=== PATIENT | female | born 1945 | race Two or more races ===

== ENCOUNTER 2016-10-24 13:40 | Inpatient (IN) | payer OTHER, MEDICAID ==
[~2016-10-24] VITALS: Ht 160 cm; Wt 94.1 kg
[~2016-10-24 13:40] MED LIST: ACET-1158 PO; ARIP1TAB7 PO; CHOL20007 PO; DIPH50TA9 PO; GABA-497 PO; HAL5T PO; LISI-646 PO; METF-372 PO; NIFE30TA87 PO; SERT-160 PO; SIMV-8 PO; WARF4TAB33 PO
[2016-10-24 14:55] LABS: Basophils # (auto) 0 uL; Basophils % (auto) 0.1 % (0.0-2.0); CONDITION Y; Eosinophils # (auto) 0 uL; Eosinophils % (auto) 0.1 % (0.0-7.0); Hematocrit 41.2 % (36.0-46.0); Hemoglobin 14.1 g/dL (12.2-16.2); Lymphocytes % (auto) 11.1 % (10.0-50.0); Mean Corpuscular Hemoglobin 28.9 pg (28.0-32.0); Mean Corpuscular Hgb Conc. 34.1 g/dL (32.0-36.0); Mean Corpuscular Volume 84.8 fL (80.0-100.0); Monocytes # (auto) 0.5 uL; Monocytes % (auto) 5.4 % (0.0-12.0); Neutrophils # (auto) 7.8 uL; Neutrophils % (auto) 83.3 % (37.0-80.0); Platelet Count (auto) 342 10^3/uL (140-450); Red Cell Distribution Width 13.9 % (11.6-16.0); White Blood Cell 9.3 10^3/uL (4.4-10.8)
[2016-10-24] MEDS ORDERED: TEMA15CA91 PO (15:07)
[2016-10-24] MEDS ORDERED: RISP2TAB62 PO (15:07)
[2016-10-24 15:11] LABS: Albumin 3.1 g/dL (3.4-5.0); Anion Gap 13 (5-15); Aspartate Aminotransferase 14 U/L (15-37); BUN/Creatinine Ratio 18.1; Blood Urea Nitrogen 23 mg/dL (7-18); Calcium 9.8 mg/dL (8.5-10.1); Carbon Dioxide 20 mmol/L (21-32); Chloride 99 mmol/L (98-107); GFR African American 54 mL/min; GFR Non-African American 44 mL/min; Glucose 380 mg/dL (74-106); Magnesium 3.9 mg/dL (1.6-2.6); Potassium 4.2 mmol/L (3.5-5.1); Sodium 132 mmol/L (136-145)
[2016-10-24 15:15] LABS: Alkaline Phosphatase 157 U/L (45-117); Bilirubin, Total 0.2 mg/dL (0.2-1.0); Total Protein 7.1 g/dL (6.4-8.2)
[2016-10-24] MEDS ORDERED: ONDANSETRON HCL 4 MG/2 ML VIAL IV ONE (16:30)
[2016-10-24] MEDS ORDERED: ASPirin 81 mg TAB PO ONE (16:30)
[2016-10-24] MEDS ORDERED: MORPHINE SULF INJ 2 MG/ML SYRINGE 1ML IV ONE (16:30)
[2016-10-24 17:01] LABS: INR 0.93 (0.9-1.15); Partial Thromboplastin Time 23.8 sec (22.64-33.71); Prothrombin Time 10.1 sec (9.37-12.3)
[2016-10-24 17:03] LABS: Urine Bilirubin Negative (Negative); Urine Blood TRACE /uL (Negative); Urine Color Yellow (Yellow); Urine Mucus FEW (None Seen); Urine Nitrite Negative (Negative); Urine RBC 1 /hpf (0 - 4); Urine Squamous Epithelial Cell FEW /hpf (<5); Urine Urobilinogen Normal (Negative)
[2016-10-24 17:17] LABS: B-Type Natriuretic Peptide 55.64 pg/mL (0-100)
[2016-10-24 17:25] LABS: Urine Glucose 4+ mg/dL (Normal); Urine Ketone 1+ (Negative)
[2016-10-24 17:50] LABS: Temperature: 24.1 C (20.0-25.0)
[2016-10-24] MEDS ORDERED: cefTRIAXone 1GM/50ML D5W 50 ML IV ONE (18:00)
[2016-10-24] MEDS ORDERED: NITROGLYCERIN 0.4 MG SL TAB SL PRN (18:00)
[2016-10-24] MEDS ORDERED: PATIENTS OWN MEDICATION (Simvastatin 1 TAB) PO SCH ×2 (18:00)
[2016-10-24] MEDS ORDERED: MORPHINE SULF INJ 2 MG/ML SYRINGE 1ML IV PRN (18:00)
[2016-10-24] MEDS ORDERED: ACETAMINOPHEN 500 MG TAB PO PRN (18:00)
[2016-10-24] MEDS ORDERED: HALOPERIDOL 5 MG TAB PO SCH (18:00)
[2016-10-24] MEDS ORDERED: DEXTROSE (50%) 50ML SYRG IV PRN (18:00)
[2016-10-24] MEDS: SODIUM CHLORIDE 0.9% 1,000 ML IV SCH (18:26)
[2016-10-24] MEDS: risperiDONE 1 MG TAB PO SCH (18:37)
[2016-10-24] MEDS: HYDROcodone-ACET 5/325MG TAB PO PRN (18:37)
[2016-10-24] MEDS: InsuLIN REG 1unit/0.01ml Soln (100units/ml) SC SCH (21:09)
[2016-10-24] MEDS: ACCU-CHEK COMFORT CURVE STRIP VI SCH (21:10)
[2016-10-24] MEDS: MORPHINE SULF INJ 2 MG/ML SYRINGE 1ML IV PRN (21:36)
[2016-10-24] MEDS: PROMETHAZINE HCL 25 MG/ML 1ML IV PRN (21:37)
[2016-10-24] MEDS: METOPROLOL TARTRATE 25 MG TAB PO SCH (22:00)
[2016-10-24] MEDS: ATORVASTATIN 20 MG TAB PO SCH (22:00)
[2016-10-24] MEDS: GABAPENTIN 300 MG CAP PO SCH (22:00)
[2016-10-25 00:17] VITALS: BP 116/68
[2016-10-25] MEDS: InsuLIN REG 1unit/0.01ml Soln (100units/ml) SC SCH ×6 (04:22→19:50)
[2016-10-25] MEDS: ACCU-CHEK COMFORT CURVE STRIP VI SCH ×6 (04:22→19:50)
[2016-10-25] MEDS: MORPHINE SULF INJ 2 MG/ML SYRINGE 1ML IV PRN (04:23)
[2016-10-25] MEDS: SODIUM CHLORIDE 0.9% 1,000 ML IV SCH ×2 (04:56→20:27)
[2016-10-25 04:58] VITALS: BP 110/61
[2016-10-25] MEDS: GABAPENTIN 300 MG CAP PO SCH ×3 (05:21→22:00)
[2016-10-25 06:11] LABS: Basophils # (auto) 0 uL; Basophils % (auto) 0.1 % (0.0-2.0); CONDITION Y; Eosinophils # (auto) 0 uL; Hematocrit 40.1 % (36.0-46.0); Hemoglobin 13.6 g/dL (12.2-16.2); Lymphocytes # (auto) 1.1 uL; Lymphocytes % (auto) 10.5 % (10.0-50.0); Mean Corpuscular Volume 85.1 fL (80.0-100.0); Mean Platelet Volume 9.2 fL (7.4-10.4); Monocytes # (auto) 0.9 uL; Monocytes % (auto) 8.8 % (0.0-12.0); Neutrophils # (auto) 8.5 uL; Neutrophils % (auto) 80.6 % (37.0-80.0); Platelet Count (auto) 336 10^3/uL (140-450); Red Cell Distribution Width 13.9 % (11.6-16.0); White Blood Cell 10.5 10^3/uL (4.4-10.8)
[2016-10-25 06:42] LABS: Albumin 2.9 g/dL (3.4-5.0); Alkaline Phosphatase 126 U/L (45-117); Anion Gap 12 (5-15); Aspartate Aminotransferase 20 U/L (15-37); BUN/Creatinine Ratio 23.7; Bilirubin, Total 0.3 mg/dL (0.2-1.0); Blood Urea Nitrogen 37 mg/dL (7-18); Calcium 9.7 mg/dL (8.5-10.1); Carbon Dioxide 22 mmol/L (21-32); Chloride 99 mmol/L (98-107); Cholesterol 186 mg/dL (< 200); GFR African American 42 mL/min; GFR Non-African American 35 mL/min; Glucose 210 mg/dL (74-106); HDL Cholesterol 32 mg/dL (40-59); LDL Cholesterol 123 mg/dL (< 100); Potassium 3.8 mmol/L (3.5-5.1); Sodium 133 mmol/L (136-145); Total Protein 6.9 g/dL (6.4-8.2); Triglycerides 183 mg/dL (< 150)
[2016-10-25 08:48] VITALS: BP 105/57
[2016-10-25] MEDS: SERTRALINE HCL 50 MG TAB PO SCH ×2 (09:30→22:00)
[2016-10-25] MEDS: cefTRIAXone 1GM/50ML D5W 50 ML IV SCH (09:30)
[2016-10-25] MEDS: ENOXAPARIN SOD 40 MG/0.4 ML SYRINGE SC SCH (09:30)
[2016-10-25] MEDS: risperiDONE 1 MG TAB PO SCH (09:31)
[2016-10-25] MEDS: ASPirin 81 mg TAB PO SCH (09:31)
[2016-10-25] MEDS: NITROGLYCERIN 0.2MG/HR TOPICAL PATCH TD SCH (10:00)
[2016-10-25] MEDS: NIFEdipine ER 30 MG TAB PO SCH (10:00)
[2016-10-25] MEDS: LISINOPRIL 20 MG TAB PO SCH (10:00)
[2016-10-25] MEDS: METOPROLOL TARTRATE 25 MG TAB PO SCH ×2 (10:00→22:00)
[2016-10-25 13:00] VITALS: BP 97/58
[2016-10-25 16:14] VITALS: BP 112/68
[2016-10-25] MEDS: metFORMIN HYDROCHLORIDE 500 MG TAB PO SCH (17:44)
[2016-10-25 22:00] VITALS: BP 109/65
[2016-10-25] MEDS: ATORVASTATIN 20 MG TAB PO SCH (22:00)
[2016-10-25] MEDS: HALOPERIDOL 5 MG TAB PO SCH (22:00)
[2016-10-25] MEDS: TEMAZEPAM 15 MG CAP PO SCH (22:00)
[2016-10-26] VITALS (7 sets, daily range): BP systolic 77–111; BP diastolic 41–69
[2016-10-26] MEDS: ACCU-CHEK COMFORT CURVE STRIP VI SCH ×7 (00:03→23:17)
[2016-10-26] MEDS: InsuLIN REG 1unit/0.01ml Soln (100units/ml) SC SCH ×7 (04:00→23:18)
[2016-10-26] MEDS: GABAPENTIN 300 MG CAP PO SCH ×4 (06:00→21:21)
[2016-10-26] MEDS: metFORMIN HYDROCHLORIDE 500 MG TAB PO SCH ×2 (06:15→17:11)
[2016-10-26 06:20] LABS: Basophils # (auto) 0 uL; Basophils % (auto) 0.3 % (0.0-2.0); CONDITION Y; Eosinophils # (auto) 0 uL; Eosinophils % (auto) 0.1 % (0.0-7.0); Hematocrit 38.4 % (36.0-46.0); Hemoglobin 13.1 g/dL (12.2-16.2); Lymphocytes # (auto) 1.6 uL; Lymphocytes % (auto) 15.5 % (10.0-50.0); Mean Corpuscular Hemoglobin 29.3 pg (28.0-32.0); Mean Corpuscular Hgb Conc. 34.2 g/dL (32.0-36.0); Mean Corpuscular Volume 85.8 fL (80.0-100.0); Monocytes # (auto) 1.1 uL; Monocytes % (auto) 10.8 % (0.0-12.0); Neutrophils # (auto) 7.4 uL; Neutrophils % (auto) 73.3 % (37.0-80.0); Platelet Count (auto) 327 10^3/uL (140-450); Red Cell Distribution Width 14.3 % (11.6-16.0); White Blood Cell 10.1 10^3/uL (4.4-10.8)
[2016-10-26 06:56] LABS: BUN/Creatinine Ratio 29.5; Calcium 9.4 mg/dL (8.5-10.1); Magnesium 3.1 mg/dL (1.6-2.6); Phosphorus 3.5 mg/dL (2.5-4.90); Potassium 3.8 mmol/L (3.5-5.1)
[2016-10-26] MEDS ORDERED: ADENOSINE IV ONE (09:15)
[2016-10-26] MEDS ORDERED: GIVE UN DILUTED IV ONE (09:15)
[2016-10-26] MEDS ORDERED: ADENOSINE 75 MG in GIVE UN-DILUTED 0 ML IV ONE ×2 (09:30→10:15)
[2016-10-26] MEDS: risperiDONE 1 MG TAB PO SCH (09:43)
[2016-10-26] MEDS: cefTRIAXone 1GM/50ML D5W 50 ML IV SCH (09:43)
[2016-10-26] MEDS: NIFEdipine ER 30 MG TAB PO SCH (09:44)
[2016-10-26] MEDS: ASPirin 81 mg TAB PO SCH (09:44)
[2016-10-26] MEDS: METOPROLOL TARTRATE 25 MG TAB PO SCH ×2 (09:45→21:21)
[2016-10-26] MEDS: SERTRALINE HCL 50 MG TAB PO SCH ×2 (09:45→21:21)
[2016-10-26] MEDS: SODIUM CHLORIDE 0.9% 1,000 ML IV SCH ×2 (09:46→23:07)
[2016-10-26] MEDS: MORPHINE SULF INJ 2 MG/ML SYRINGE 1ML IV PRN (09:46)
[2016-10-26] MEDS: LISINOPRIL 20 MG TAB PO SCH (09:47)
[2016-10-26] MEDS: NITROGLYCERIN 0.2MG/HR TOPICAL PATCH TD SCH (09:47)
[2016-10-26] MEDS: ENOXAPARIN SOD 40 MG/0.4 ML SYRINGE SC SCH (09:47)
[2016-10-26] MEDS ORDERED: CEPH-37 PO (11:00)
[2016-10-26] MEDS: HYDROcodone-ACET 5/325MG TAB PO PRN (15:55)
[2016-10-26] MEDS: ATORVASTATIN 20 MG TAB PO SCH (21:21)
[2016-10-26] MEDS: HALOPERIDOL 5 MG TAB PO SCH (21:21)
[2016-10-26] MEDS: TEMAZEPAM 15 MG CAP PO SCH (23:17)
[2016-10-27] MEDS: ACCU-CHEK COMFORT CURVE STRIP VI SCH ×5 (04:37→20:00)
[2016-10-27] MEDS: InsuLIN REG 1unit/0.01ml Soln (100units/ml) SC SCH ×5 (04:37→20:00)
[2016-10-27 05:00] VITALS: BP 96/52
[2016-10-27] MEDS: GABAPENTIN 300 MG CAP PO SCH ×4 (06:00→21:18)
[2016-10-27] MEDS: metFORMIN HYDROCHLORIDE 500 MG TAB PO SCH ×3 (06:32→18:43)
[2016-10-27] MEDS: MORPHINE SULF INJ 2 MG/ML SYRINGE 1ML IV PRN (08:52)
[2016-10-27] MEDS: cefTRIAXone 1GM/50ML D5W 50 ML IV SCH (08:52)
[2016-10-27 09:00] VITALS: BP 118/70
[2016-10-27] MEDS ORDERED: KETOROLAC TROMETH 30 MG/ML 1ML VIAL IM ONE (09:00)
[2016-10-27] MEDS: NITROGLYCERIN 0.2MG/HR TOPICAL PATCH TD SCH (10:00)
[2016-10-27] MEDS: LISINOPRIL 20 MG TAB PO SCH (10:00)
[2016-10-27] MEDS: NIFEdipine ER 30 MG TAB PO SCH (10:00)
[2016-10-27] MEDS: METOPROLOL TARTRATE 25 MG TAB PO SCH ×2 (10:00→21:18)
[2016-10-27] MEDS: ENOXAPARIN SOD 40 MG/0.4 ML SYRINGE SC SCH (10:35)
[2016-10-27] MEDS: risperiDONE 1 MG TAB PO SCH (10:35)
[2016-10-27] MEDS: SERTRALINE HCL 50 MG TAB PO SCH ×2 (10:36→21:20)
[2016-10-27] MEDS: ASPirin 81 mg TAB PO SCH (10:36)
[2016-10-27] MEDS: KETOROLAC TROMETH 60MG/2ML VIAL IM SCH ×2 (12:30→21:17)
[2016-10-27 13:00] VITALS: BP 100/61
[2016-10-27] MEDS ORDERED: SODIUM CHLORIDE 0.9% 1,000 ML IV STA (13:18)
[2016-10-27 17:00] VITALS: BP 129/77
[2016-10-27] MEDS: SODIUM CHLORIDE 0.9% 1,000 ML IV SCH (17:18)
[2016-10-27 19:22] VITALS: BP 117/72
[2016-10-27] MEDS: TEMAZEPAM 15 MG CAP PO SCH (21:17)
[2016-10-27] MEDS: ATORVASTATIN 20 MG TAB PO SCH (21:19)
[2016-10-27] MEDS ORDERED: HALOPERIDOL 5 MG TAB PO SCH (22:00)
[2016-10-27 22:39] VITALS: BP 138/65
[2016-10-28] MEDS: ACCU-CHEK COMFORT CURVE STRIP VI SCH ×6 (00:26→20:00)
[2016-10-28] MEDS: MORPHINE SULF INJ 2 MG/ML SYRINGE 1ML IV PRN (00:26)
[2016-10-28] MEDS: PROMETHAZINE HCL 25 MG/ML 1ML IV PRN (00:27)
[2016-10-28] MEDS: GABAPENTIN 300 MG CAP PO SCH ×3 (03:59→21:53)
[2016-10-28] MEDS: KETOROLAC TROMETH 60MG/2ML VIAL IM SCH ×2 (04:00→12:11)
[2016-10-28] MEDS: InsuLIN REG 1unit/0.01ml Soln (100units/ml) SC SCH ×6 (04:00→21:03)
[2016-10-28] MEDS: SODIUM CHLORIDE 0.9% 1,000 ML IV SCH ×3 (04:00→22:26)
[2016-10-28] MEDS: metFORMIN HYDROCHLORIDE 500 MG TAB PO SCH ×2 (04:49→18:12)
[2016-10-28 05:04] VITALS: BP 132/60
[2016-10-28] MEDS: cefTRIAXone 1GM/50ML D5W 50 ML IV SCH (08:57)
[2016-10-28 09:00] VITALS: BP 98/65
[2016-10-28] MEDS: NIFEdipine ER 30 MG TAB PO SCH (10:00)
[2016-10-28] MEDS: NITROGLYCERIN 0.2MG/HR TOPICAL PATCH TD SCH (10:00)
[2016-10-28] MEDS: METOPROLOL TARTRATE 25 MG TAB PO SCH ×2 (10:00→21:54)
[2016-10-28] MEDS: LISINOPRIL 20 MG TAB PO SCH (10:00)
[2016-10-28] MEDS ORDERED: risperiDONE 1 MG TAB PO SCH (10:00)
[2016-10-28] MEDS: ENOXAPARIN SOD 40 MG/0.4 ML SYRINGE SC SCH (10:12)
[2016-10-28] MEDS: ASPirin 81 mg TAB PO SCH (10:12)
[2016-10-28] MEDS: SERTRALINE HCL 50 MG TAB PO SCH ×2 (10:13→21:53)
[2016-10-28 13:00] VITALS: BP 121/75
[2016-10-28] MEDS ORDERED: MORPHINE SULFATE 4 MG/ML SYRG IV PRN ×2 (14:22)
[2016-10-28 17:00] VITALS: BP 124/72
[2016-10-28 21:30] VITALS: BP 148/77
[2016-10-28] MEDS: ATORVASTATIN 20 MG TAB PO SCH (21:53)
[2016-10-28] MEDS: TEMAZEPAM 15 MG CAP PO SCH (21:54)
[2016-10-29] MEDS: ACCU-CHEK COMFORT CURVE STRIP VI SCH ×2 (04:00)
[2016-10-29 05:00] VITALS: BP 119/70
[2016-10-29] MEDS: InsuLIN REG 1unit/0.01ml Soln (100units/ml) SC SCH ×2 (05:41→05:43)
[2016-10-29] MEDS: GABAPENTIN 300 MG CAP PO SCH (06:13)
[2016-10-29] MEDS: metFORMIN HYDROCHLORIDE 500 MG TAB PO SCH (06:33)
[2016-10-29 08:00] VITALS: BP 116/75
[2016-10-29 09:00] VITALS: BP 139/77
== END 2016-10-29 12:30 | DRG 872 ==
LOC: EDBD 13:40 → ER 13:47 → TELE 13:48 → TELE-CENTR 20:46
PROVIDERS: ADMIT Internal Medicine; ATTEND Internal Medicine Pulmonary Disease
DX: A41.9 Sepsis, unspecified organism (principal); E87.1 Hypo-osmolality and hyponatremia; N12 Tubulo-interstitial nephritis, not specified as acute or chronic; F20.9 Schizophrenia, unspecified; F41.9 Anxiety disorder, unspecified; E66.9 Obesity, unspecified; F32.9 Major depressive disorder, single episode, unspecified; Z85.3 Personal history of malignant neoplasm of breast; E78.5 Hyperlipidemia, unspecified; E11.22 Type 2 diabetes mellitus with diabetic chronic kidney disease; N18.3 Chronic kidney disease, stage 3 (moderate); E11.65 Type 2 diabetes mellitus with hyperglycemia; B96.20 Unspecified Escherichia coli [E. coli] as the cause of diseases classified elsewhere; I13.10 Hypertensive heart and chronic kidney disease without heart failure, with stage 1 through stage 4 chronic kidney disease, or unspecified chronic kidney disease; G89.29 Other chronic pain; K59.00 Constipation, unspecified; M94.0 Chondrocostal junction syndrome [Tietze]; Z83.3 Family history of diabetes mellitus; Z79.899 Other long term (current) drug therapy; Z90.11 Acquired absence of right breast and nipple; Z98.51 Tubal ligation status; Z68.36 Body mass index [BMI] 36.0-36.9, adult
CPT/HCPCS: 36415; 71010; 80048; 80053; 80061; 80307; 81001; 82550; 82962; 83036; 83735; 83880; 84100; 84443; 84484; 85025; 85379; 85610; 85652; 85730; 86141; 87086; 87088; 87186; 93005; 93306; 96365; 96375; J0153; J0696; J1815; J1885; J2405